=== PATIENT | male | born 1960 | race Two or more races ===

== ENCOUNTER 2018-09-30 08:15 | Outpatient (CLI) | payer OTHER ==
[~2018-09-30] VITALS: Ht 175.3 cm; Wt 81.6 kg
[2018-09-30] MEDS ORDERED: CLARITIN10 MG PO (09:22)
[2018-09-30] MEDS ORDERED: FLONASE16 GM NASAL (09:22)
== END 2018-09-30 08:30 | disposition home or self-care (01) ==
LOC: OFIC 805 08:15
DX: H69.90 Unspecified Eustachian tube disorder, unspecified ear (principal); J31.0 Chronic rhinitis; J34.2 Deviated nasal septum

== ENCOUNTER 2021-10-10 13:31 | Outpatient (CLI) | payer OTHER ==
[~2021-10-10 13:31] MED LIST: CLARITIN10 MG PO; FLONASE16 GM NASAL
== END 2021-10-10 13:34 | disposition home or self-care (01) ==
LOC: RAD 13:31
PROVIDERS: ATTEND Orthopaedic Surgery
DX: M79.672 Pain in left foot (principal)

== ENCOUNTER 2021-10-25 10:09 | Outpatient (CLI) | payer OTHER | END 2021-10-25 10:10 | disposition home or self-care (01) | LOC: LAB 10:09 | PROVIDERS: ATTEND Orthopaedic Surgery | DX: D64.9 Anemia, unspecified (principal); E88.9 Metabolic disorder, unspecified; D68.8 Other specified coagulation defects; N39.0 Urinary tract infection, site not specified; A49.02 Methicillin resistant Staphylococcus aureus infection, unspecified site; E11.9 Type 2 diabetes mellitus without complications; I49.9 Cardiac arrhythmia, unspecified; I10 Essential (primary) hypertension; Z76.89 Persons encountering health services in other specified circumstances ==

== ENCOUNTER 2021-11-06 06:00 | Day surgery (SDC) | payer OTHER | END 2021-11-06 14:10 | disposition home or self-care (01) | LOC: CIR.AMB 06:00 | PROVIDERS: ATTEND Orthopaedic Surgery | DX: D21.22 Benign neoplasm of connective and other soft tissue of left lower limb, including hip (principal); Z20.822 Contact with and (suspected) exposure to COVID-19; Z88.6 Allergy status to analgesic agent ==

== ENCOUNTER 2021-11-23 07:17 | Outpatient (CLI) | payer OTHER | END 2021-11-23 15:03 | disposition home or self-care (01) | LOC: NUCLEAR 07:17 | PROVIDERS: ATTEND Internal Medicine Cardiovascular Disease | DX: I25.9 Chronic ischemic heart disease, unspecified (principal); I73.9 Peripheral vascular disease, unspecified ==

== ENCOUNTER 2021-11-23 07:43 | Outpatient (CLI) | payer OTHER | END 2021-11-23 07:44 | disposition home or self-care (01) | LOC: LAB 07:43 | PROVIDERS: ATTEND Internal Medicine | DX: U07.1 COVID-19 (principal); B37.1 Pulmonary candidiasis ==

== ENCOUNTER 2023-08-27 13:00 | Outpatient (CLI) | payer OTHER | END 2023-08-27 13:30 | disposition home or self-care (01) | LOC: RAD 13:00 | PROVIDERS: ATTEND Orthopaedic Surgery | DX: M25.571 Pain in right ankle and joints of right foot (principal) ==